=== PATIENT | female | born 1930 | race African-American/Black ===

== ENCOUNTER 2018-11-05 14:42 | Emergency (ER) | payer MEDICARE ==
[~2018-11-05] VITALS: Ht 172.7 cm; Wt 106.8 kg
[2018-11-05 14:43] VITALS: BP 161/99
[2018-11-05] MEDS ORDERED: CLON-570 PO (14:49)
[2018-11-05] MEDS ORDERED: CLOP75TA3 PO (14:49)
[2018-11-05] MEDS ORDERED: CALC25 PO (14:49)
[2018-11-05] MEDS ORDERED: GABA-531 PO (14:49)
[2018-11-05] MEDS ORDERED: METO50 PO (14:49)
[2018-11-05] MEDS ORDERED: HYDR-2924 PO (14:49)
[2018-11-05] MEDS ORDERED: KETOROLAC TROMETHAMINE 60 MG/2 ML VIAL IM ONE (15:45)
[2018-11-05] MEDS ORDERED: DIAZEPAM 5 MG TABLET PO ONE (15:45)
== END 2018-11-05 16:05 | disposition home or self-care (01) ==
LOC: EMS 14:43
DX: M43.6 Torticollis (principal); E11.9 Type 2 diabetes mellitus without complications; E78.00 Pure hypercholesterolemia, unspecified; I10 Essential (primary) hypertension; Z86.73 Personal history of transient ischemic attack (TIA), and cerebral infarction without residual deficits
CPT/HCPCS: 82962; 96372; 99283; J1885

== ENCOUNTER 2019-09-02 01:14 | Emergency (ER) | payer MEDICARE ==
[~2019-09-02] VITALS: Ht 172.7 cm; Wt 90.9 kg
[~2019-09-02 01:14] MED LIST: CALC25 PO; CLON0.1T83 PO; CLOP75TA3 PO; GABA-1181 PO; HYDR-2924 PO; METO50 PO
[2019-09-02 02:10] LABS: GLUCOSE,POINT OF CARE 109 MG/DL (70-110)
[2019-09-02] MEDS ORDERED: PredniSONE 20 MG TABLET PO ONE (03:00)
[2019-09-02] MEDS ORDERED: HYDROCODONE/ACETAMINOPHEN 5-325 MG TABLET PO ONE (03:00)
[2019-09-02] MEDS ORDERED: ACYCLOVIR 200 MG CAPSULE PO ONE (03:00)
[2019-09-02 03:23] VITALS: BP 143/67
== END 2019-09-02 03:30 | disposition home or self-care (01) ==
LOC: EMS 01:15
DX: B02.8 Zoster with other complications (principal); I10 Essential (primary) hypertension; E78.00 Pure hypercholesterolemia, unspecified; E11.9 Type 2 diabetes mellitus without complications
CPT/HCPCS: 82962; 99284; J7512

== ENCOUNTER 2021-12-22 09:05 | Emergency (ER) | payer MEDICARE ==
[~2021-12-22] VITALS: Ht 170.2 cm; Wt 90.9 kg
[~2021-12-22 09:05] MED LIST changes: +CALC0.2521 PO; -CALC25 PO; +CLON0.1T2 PO; -CLON0.1T83 PO; -CLOP75TA3 PO; +CLOP75TA60 PO; -HYDR-2924 PO; +HYDR50TA36 PO
[2021-12-22 09:13] VITALS: BP 148/52
[2021-12-22] MEDS ORDERED: ACETAMINOPHEN 500 MG TABLET PO ONE (09:30)
[2021-12-22 09:36] LABS: GLUCOSE,POINT OF CARE 102 MG/DL (70-110)
== END 2021-12-22 09:50 | disposition home or self-care (01) ==
LOC: EMS 09:08
DX: E11.40 Type 2 diabetes mellitus with diabetic neuropathy, unspecified (principal); E78.00 Pure hypercholesterolemia, unspecified; I10 Essential (primary) hypertension; M79.672 Pain in left foot; M79.671 Pain in right foot
CPT/HCPCS: 82962; 99282

== ENCOUNTER 2022-02-28 22:55 | Emergency (ER) | payer MEDICARE ==
[~2022-02-28] VITALS: Ht 172.7 cm; Wt 86.4 kg
[2022-02-28 23:37] LABS: COVID AG,FIA SOURCE NASOPHARYNGEAL
[2022-02-28 23:48] LABS: BASOPHILS % (AUTO) 0.6 % (0.0-2.0); HEMOGLOBIN 9.8 g/dL (12.0-16.0); LYMPHOCYTES # (AUTO) 1.5 K/uL (1.0-4.8); LYMPHOCYTES % (AUTO) 26.4 % (22.0-44.0); MEAN CORPUSCULAR HEMOGLOBIN 28.7 pg (26.0-34.0); MEAN CORPUSCULAR HGB CONC 31.7 G/dL (31.0-37.0); MEAN CORPUSCULAR VOLUME 91 fL (80-100); MONOCYTES # (AUTO) 0.3 K/uL (0.1-1.0); MONOCYTES % (AUTO) 6.3 % (2.0-9.0); NEUTROPHILS # (AUTO) 3.6 K/uL (1.8-7.7); NEUTROPHILS % (AUTO) 65.7 % (40.0-70.0); PLATELET COUNT (AUTO) 235 K/uL (150-450); RED BLOOD CELL COUNT(AUTO) 3.43 MIL/uL (4.00-5.20); RED CELL DISTRIBUTION WIDTH 14.1 % (11.5-14.5)
[2022-02-28 23:56] LABS: CREATININE 2.39 mg/dL (0.60-1.30); POTASSIUM 4.8 mmol/L (3.5-5.1)
[2022-02-28 23:56] LABS: INFLUENZA TYPE A NEGATIVE FOR TYPE A (NEGATIVE); INFLUENZA TYPE B NEGATIVE FOR TYPE B (NEGATIVE)
[2022-03-01 00:02] LABS: ALBUMIN 3.3 g/dL (3.4-5.0); BILIRUBIN,TOTAL 0.6 mg/dL (0.1-1.0); TOTAL PROTEIN, SERUM 6.5 g/dL (6.4-8.2)
[2022-03-01] MEDS ORDERED: HydrALAZINE HCL 20 MG/ML VIAL IVP ONE (00:30)
[2022-03-01] MEDS ORDERED: AZITHROMYCIN 500 MG TABLET PO ONE (01:30)
[2022-03-01] MEDS ORDERED: AZIT-84 PO (01:31)
[2022-03-01 02:13] VITALS: BP 180/87
== END 2022-03-01 02:15 | disposition home or self-care (01) ==
LOC: EMS 22:56
DX: I10 Essential (primary) hypertension (principal); Z20.822 Contact with and (suspected) exposure to COVID-19; J40 Bronchitis, not specified as acute or chronic; E11.9 Type 2 diabetes mellitus without complications; Z86.73 Personal history of transient ischemic attack (TIA), and cerebral infarction without residual deficits
CPT/HCPCS: 99285; 71045; 87426; 80053; 82550; 83880; 84484; 85025; 87804; 36415; 93005; 96374; J0360; Q9967